=== PATIENT | male | born 1955 | race Caucasian/White ===

== ENCOUNTER 2018-03-05 10:23 | Day surgery (SDC) | payer OTHER ==
[2018-03-05] MEDS ORDERED: ceFAZolin 2 GM/DEXTROSE 100 ML IV ONE (10:39)
[2018-03-05] MEDS ORDERED: LR 1,000 ML IV ONE (10:42)
[2018-03-05] MEDS ORDERED: LIDOCAINE 1% 2 ML INJ ID PRN (10:42)
--- NOTE | 2018-03-05 11:26 | PDHPUP ---
History & Physical Update H&P update statement: This history and physical update is based on an assessment of the patient which was completed after admission or registration (within 24 hours), but prior to the surgery/procedure. H&P update: H&P reviewed & patient examined, no change in patient's condition since H&P completed
[2018-03-05] MEDS ORDERED: BUPIVACAINE 0.25% 30 ML SDV ONE (11:57)
[2018-03-05] MEDS ORDERED: EPINEPHrine 1 MG/ML INJ ONE ×2 (11:58→13:17)
[2018-03-05] MEDS ORDERED: KETOROLAC 30 MG/1 ML SDV ONE (12:14)
[2018-03-05] MEDS ORDERED: KETOROLAC 30 MG/1 ML SDV IVP ONE (12:16)
[2018-03-05] MEDS ORDERED: LIDOCAINE 2% 100 MG/5 ML SYR ONE (12:38)
[2018-03-05] MEDS ORDERED: MIDAZOLAM 2 MG/2 ML VIAL ONE (12:39)
[2018-03-05] MEDS ORDERED: fentaNYL 100 MCG/2 ML INJ ONE (12:39)
[2018-03-05] MEDS ORDERED: PROPOFOL 200 MG/20 ML VIAL ONE (12:39)
--- NOTE | 2018-03-05 13:10 | PDANEPAE ---
ANE History of Present Illness Enlarged lymph nodes, lymph node biopsy off ileum ANE Past Medical History - Cardiovascular History Hx Hypertension: No Hx Arrhythmias: No Hx Chest Pain: No Hx Coronary Artery / Peripheral Vascular Disease: No Hx CHF / Valvular Disease: No Hx Palpitations: No Cardiovascular History Comment: MAY HAVE HAD A MINOR DE IN PAST PER PCP - CLINIC [facility] SAW NO SIGNS OF PAST DE - Pulmonary History Hx COPD: No Hx Asthma/Reactive Airway Disease: No Hx Recent Upper Respiratory Infection: No Hx Oxygen in Use at Home: No Hx Sleep Apnea: No Sleep Apnea Screening Result - Last Documented: Negative - Neurologic History Hx Cerebrovascular Accident: No Hx Seizures: No Hx Dementia: No - Endocrine History Hx Diabetes: No - Renal History Hx Renal Disorders: No - Liver History Hx Hepatic Disorders: No - Neurological & Psychiatric Hx Hx Neurological and Psychiatric Disorders: No - Cancer History Hx Cancer: Yes 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 FEVER AND CHILLS - Chronic Pain History Chronic Pain: No - Surgical History Prior Surgeries: TESTICULAR SURGERY ANE Review of Systems Review of Systems: - Exercise capacity METS (RN): 4 METS ANE Patient History - Allergies Allergies/Adverse Reactions: No Known Allergies Allergy (Unverified 10/25/10 11:07) - Home Medications Home Medications: Ibuprofen 03/04/18 [Last Taken 1 Day Ago ~03/04/18] Tylenol 03/04/18 [Last Taken 03/05/18 07:30] - NPO status NPO Since - Liquids (Date): 03/05/18 NPO Since - Liquids (Time): 07:00 NPO Since - Solids (Date): 03/04/18 NPO Since - Solids (Time): 20:00 - Smoking Hx Smoking Status: Former smoker - Family Anes Hx Family Hx Anesthesia Complications: NEG ANE Labs/Vital Signs - Vital Signs Blood Pressure: 108/72 Heart Rate: 102 Respiratory Rate: 18 O2 Sat (%): 96 Height: 177.8 cm Weight: 81.647 kg ANE Physical Exam - Airway Neck exam: FROM Mallampati Score: Class 2 Mouth exam: dentures - Pulmonary Pulmonary: no respiratory distress - Cardiovascular Cardiovascular: regular rate and rhythym - ASA Status ASA Status: III (Fevers and chills controlled with toradol and tylenol) ANE Anesthesia Plan Anesthesia Plan: GA w LMA
[2018-03-05] MEDS ORDERED: HYDROmorphONE/DILAUDID 2 MG/ML INJ IVP PRN (13:50)
[2018-03-05] MEDS ORDERED: LR 500 ML IV PRN (13:50)
[2018-03-05] MEDS ORDERED: MEPERIDINE 25 MG/0.5 ML AMP IVP PRN (13:50)
[2018-03-05] MEDS ORDERED: LABETALOL HCL 5 MG/ML 20 ML MDV IVP PRN (13:50)
[2018-03-05] MEDS ORDERED: oxyCODONE IR 5 MG TAB PO PRN (13:50)
[2018-03-05] MEDS ORDERED: ONDANSETRON 4 MG/2 ML VIAL IVP PRN (13:50)
[2018-03-05] MEDS ORDERED: PROMETHAZINE HCL 25 MG/ML INJ IVP PRN (13:50)
[2018-03-05] MEDS ORDERED: fentaNYL 100 MCG/2 ML INJ IVP PRN (13:50)
[2018-03-05] MEDS ORDERED: NALOXONE HCL 0.4 MG/ML INJ IVP PRN (13:50)
[2018-03-05] MEDS ORDERED: ACETAMINOPHEN 500 MG TAB PO PRN (13:50)
[2018-03-05] MEDS ORDERED: SUGAMMADEX SODIUM 200 MG/2 ML VIAL IVP ONE (14:01)
--- NOTE | 2018-03-05 14:38 | POSTANESTH ---
Post Anesthetic Evaluation Cardiovascular Status: Normal, Stable, Similar to Pre-Op Cond Respiratory Status: Normal, Stable Level of Consciousness/Mental Status: Can Participate in Eval, Mildly Sleepy, Arousable Pain Control: Adequate, Prn Tx Ordered Nausea/Vomiting Control: Adequate, Prn Tx Ordered Complications Possibly Related to Anesthesia: None Noted (Fever resolving in PACU with Tylenol and second dose of toradol, cough due to excessive secretions and managable for patient. Feels good and ready for DC to Pre-op)
[2018-03-05] MEDS ORDERED: ACETAMINOPHEN 500 MG TAB ONE (15:00)
[2018-03-05 15:47] VITALS: BP 84/61
--- NOTE | 2018-03-05 20:47 | GOP ---
DATE OF OPERATION: 03/05/2018 SURGEON: Kang Summers MD NEONATAL DOCTOR: Carol Damon CFA. ANESTHESIA: General endotracheal. ANESTHESIOLOGIST: Dr. Acuña. PREOPERATIVE DIAGNOSIS: Abdominal lymphadenopathy concerning for lymphoma. POSTOPERATIVE DIAGNOSIS: Abdominal lymphadenopathy concerning for lymphoma. PROCEDURE PERFORMED: Laparoscopic excisional lymph node biopsy. FINDINGS: Enlarged lymph node along the left common iliac was identified and successfully removed. SPECIMENS: Left common iliac lymph node. ESTIMATED BLOOD LOSS: 2 cc. DESCRIPTION OF PROCEDURE: The patient was greeted in the preoperative suite. Once again, risks, ilia efits, and alternatives were discussed. Consent was signed. The patient was then brought back to e operative suite, placed on the OR table in a supine position. After all anesthesia machines were o n and functioning, [employer] time-out was performed. After successful induction of g eneral anesthesia, the patient's abdomen was prepped and draped in typical sterile fashion. I entere d the abdomen via an infraumbilical cutdown, through which the Veress needle was passed. I achieved pneumoperitoneum to 15 mmHg, which was well tolerated by the patient through this I inserted a 5 mm V isiport. Once successfully in the abdomen. I then inserted 2 additional 5 mm trocars, 1 in the righ t lower, 1 in the right upper quadrant, both under direct visualization. The patient was then placed in reverse Trendelenburg position and I turned my attention toward the left pelvis. I did have to m obilize the sigmoid colon somewhat off the pelvic wall as there were some adhesions. Once successful ly mobilized, I turned my attention toward the pelvic inlet where I identified the common iliac vesse ls. Just above them at the pelvic brim, I identified what appeared to be a fullness consistent with the preoperative PET scan. I then opened the peritoneum at this site and identified a single 2 cm ly mph node. The lymph node was then skeletonized off the surrounding structures hemostatically using e lectrocautery. Once that was successfully skeletonized, it was removed and passed off in whole, fres h. Hemostasis was noted in the cavity. I then interrogated the remainder of the abdomen and found n o other significant findings. I removed my ports and evacuated my pneumoperitoneum. The skin was th en closed with Monocryl, over which Dermabond was placed. The patient was then extubated in the oper ative suite and taken to the PACU in satisfactory condition. DRAINS: None. COUNTS: All counts were reported as correct x2. /[id number]/MODL
== END 2018-03-05 15:42 | disposition home or self-care (01) ==
LOC: FSGY 10:23
PROVIDERS: ATTEND Surgery
PROC: 07BC4ZX Excision of Pelvis Lymphatic, Percutaneous Endoscopic Approach, Diagnostic (ICD-10-PCS; principal; 2018-03-05 12:15)
DX: R59.0 Localized enlarged lymph nodes (principal); D64.9 Anemia, unspecified; R61 Generalized hyperhidrosis
CPT/HCPCS: 88184-90; 88185-91; 88323-90; 88342; J0171; J0690; J1885; J2001; J2250; J2704; J3010